=== PATIENT | female | born 1975 | race Caucasian/White ===

== ENCOUNTER 2023-11-16 07:57 | Day surgery (SDC) | payer BC, SELFPAY ==
[2023-11-15 18:14] VITALS: BP 173/120
[2023-11-15] MEDS: DILAUDID 0.5 MG IV (18:26)
[2023-11-15] MEDS: ZOFRAN 4 MG IV ×2 (18:26→19:14)
[2023-11-15] MEDS: NSS 1000 IV (18:29)
--- NOTE | 2023-11-15 18:32 | ED.GENMED ---
History of Present Illness
General
Chief Complaint: Abdominal Symptoms
Source: patient and spouse
Exam Limitations: none
Time Seen by Provider: 11/15/23 18:22
Travel History
Have you had any contact with someone who has COVID-19?: No
Do you have any symptoms of coronavirus? Fever > 100 degrees, chills, cough, shortness of breath, sore throat, loss of taste or smell, muscle aches, or headache?: No
History of Present Illness
History of Present Illness:
Severe left lower quadrant pain. Became severe early this morning. Patient is an ER nurse. Upon leaving work this morning pain was becoming severe. Had some slight reprieve for a few hours and then became severe again. Mild pain in the last 2
days. No history of same. Some nausea. No fever.
Past History
Past History
ED Past Medical History: Cancer (BREAST)
ED Past Surgical History: Appendectomy, and Gynecological (Tubal ligation. Lumpectomy.)
Social History
Tobacco: Non-smoker
Alcohol: None
Drug: None
Personal:
Living: with family
Employment: Employed
Review of Systems
Review of Systems
All Other Systems: Not applicable
Constitutional: Denies fever
ABD/GI: Denies diarrhea
: Reports no symptoms
Phy Exam
Physical Exam
Physical Exam:
GENERAL: Alert. Screaming and writhing in pain
EYE: Orbits normal.
NECK: Supple
CARDIAC: Regular rate and rhythm without any obvious murmurs.
LUNGS: Clear breath sounds,normal
ABDOMEN: Soft, mild tenderness left lower quadrant. No rebound or guarding no mass or hernia
NEUROLOGICAL: Alert and oriented , grossly non-focal
SKIN: Warm and dry, no rash or lesion, no discoloration, skin intact.
MUSCULOSKELETAL: No edema,no deformity.Good color
PSYCH: Very nice and cooperative but agitated secondary to pain
Course
Orders/Labs/Results
Orders:
Orders
11/15/23 18:24
HYDROmorphone [Dilaudid] 0.5 mg .ROUTE .STK-MED ONE
Ondansetron Injectable [Zofran] 4 mg .ROUTE .STK-MED ONE
11/15/23 18:25
Ondansetron Injectable [Zofran] 4 mg IV NOW STA
Test Result ONCE
11/15/23 18:26
HYDROmorphone [Dilaudid] 0.5 mg IV NOW STA
11/15/23 18:27
Type+Screen Urgent
IV Insert/Care/Rem.- Treatment PRN
CA 125 Urgent
Comment: ADDON
CEA Urgent
Comment: ADDON
Complete Blood Count/With Diff Urgent
Comprehensive Metabolic Panel Urgent
HCG, Serum Qualitative Screen Urgent
Lipase Urgent
Urinalysis Reflex To Culture Urgent
Date Specimen was Collected: 11/15/23
Time Specimen was Collected: 18:38
0.9% Sodium Chloride 1000 ml [Nss] 1,000 ml IV BOLUS
11/15/23 18:28
CT Abd/pel Without Iv Or Oral Urgent
Comment:
Reason For Exam: llq pain
11/15/23 18:30
HYDROmorphone [Dilaudid] 0.5 mg .ROUTE .STK-MED ONE
11/15/23 18:41
HYDROmorphone [Dilaudid] 1 mg IV NOW STA
Ketorolac [Toradol] 15 mg IV NOW STA
11/15/23 18:48
US Pelvis Transvaginal Only Stat
Comment:
Reason For Exam: severe llq pain. evaluate for torsion
11/15/23 19:05
Ondansetron Injectable [Zofran] 4 mg IV NOW STA
11/15/23 20:10
Electrocardiogram (*1) Urgent
Reason for Study: Abdominal Pain
EKG- Treatment ONCE
11/15/23 20:35
Diphenhydramine [Benadryl] 25 mg IV NOW STA
Prochlorperazine [Compazine] 5 mg IV NOW STA
11/15/23 21:07
Add On- LAB Urgent
Tests Added?: cea,ca125
11/15/23 21:17
Lidocaine 2% Mpf [Xylocaine Mpf 2%] 100 mg .ROUTE .STK-MED ONE
Propofol [Diprivan] 20 ml .ROUTE .STK-MED
Rocuronium [place] [Rocuronium] 50 mg .ROUTE .STK-MED ONE
11/15/23 21:18
Dexamethasone Sod Phosphate [Decadron] 20 mg .ROUTE .STK-MED ONE
Fentanyl Citrate/Pf [Sublimaze] 100 mcg .ROUTE .STK-MED ONE
Midazolam HCl [Versed] 2 mg .ROUTE .STK-MED ONE
Ondansetron Injectable [Zofran] 4 mg .ROUTE .STK-MED ONE
Abnormal Lab Results
11/15/23
18:27
Glucose 110 H mg/dl
(70-99)
11/15/23 18:27
11/15/23 18:27
Vital Signs
Initial and Last Documented VS:
Initial Vital Signs
Temp Pulse Resp BP Pulse Ox
98.2 F 75 16 173/120 98
11/15/23 18:14 11/15/23 18:14 11/15/23 18:14 11/15/23 18:14 11/15/23 18:14
Last Documented Vital Signs
Temp Pulse Resp BP Pulse Ox
98.2 F 88 21 173/90 99
11/15/23 18:14 11/15/23 19:15 11/15/23 18:30 11/15/23 19:00 11/15/23 18:30
*Radiology
Radiology exam reviewed: radiology read reviewed (Large cystic mass left ovary.) and other (Complex left solid and cystic mass suspicious for neoplasm. Flow to the left ovary. Probable hemorrhagic cyst of the right ovary. No definitive flow to
the right ovary however symptoms are left-sided)
*Pulse Oximetry
Patient hypoxic: no
*Critical Care Note
Total Time (30-74mins, 75-104mins- exclusive of procedures): 40
Update Note
Update Note:
1845... 8 cm left ovarian cystic lesion. By CT. Patient still in significant pain. Clinically highly suspect torsion. [facility] contacted.
1900.... Patient appears mildly more comfortable although more nauseous. Discussed with [facility]. They still would like the ultrasound. They are coming in.
ED Attending Note
-
Portions of this chart may have been created with voice recognition software.� Occasional wrong word or��sound alike� substitutions may have occurred due to the inherent limitations of voice recognition software.
Discharge Plan
Departure
Patient Disposition: Admit
Date of Disposition: 11/15/23
Time of Disposition: 21:10
Presentation/result/management discussed w/ accepting MD/DO: Gynecology
Discharge Problem:
Severe left pelvic pain, Left pelvic cystic mass, Possible ovarian torsion
Prescriptions:
No Action
amoxicillin-pot clavulanate 875-125 mg tablet
1 tab PO BID Qty: 14 0RF
Referrals:
NONE,* [Family Provider] -
Interventions
Interventions:
*Risk Screen - Suicide Last Done: 11/15/23 18:40
*General Assessment Last Done: 11/15/23 21:55
*Neglect/Abuse Screening Last Done: 11/15/23 18:40
ED- Fall Risk Assessment Last Done: 11/15/23 21:55
*ED COVID-19 Vaccine History Last Done: 11/15/23 18:14
*Nursing Disposition Last Done: 11/15/23 21:57
QE-Xatgns-Jzlriwhmft Assessment Last Done: 11/15/23 18:55
Discharge Date and Time
Discharge Date/Time: 11/15/23 21:58
[2023-11-15 18:38] LABS: % Basophils 0.6 % (0-2); % Eosinophils 3.7 % (0-6); % Immature Granulocytes 0.4 % (0-0.5); % Lymphocytes 24.3 % (20.5-51.1); % Monocytes 6.2 % (1.7-9.3); % Neutrophils 64.8 % (42.2-75.2); Absolute Eosinophils 0.2 10^3/uL (0-0.7); Absolute Lymphocytes 1.3 10^3/uL (1.2-3.4); Absolute Monocytes 0.3 10^3/uL (0.1-0.6); Absolute Neutrophils 3.5 10^3/uL (1.4-6.5); Hematocrit 38.5 % (37.0-47.0); Hemoglobin 13.4 g/dL (12.0-16.0); Mean Corp Hgb Conc. 34.8 g/dL (33.0-37.0); Mean Corpuscular Hgb 28.3 pg (27.0-31.0); Mean Corpuscular Volume 81.2 fL (81.0-99.0); Mean Platelet Volume 9.6 fL (7.4-10.4); Nucleated Red Blood Cells % 0 %; Platelet Count 221 10^3/uL (130-400); Red Blood Cell Count 4.74 10^6/uL (4.20-5.40); Red Cell Dist. Width 12.2 % (11.5-14.5); White Blood Cell Count 5.4 10^3/uL (4.8-10.8)
[2023-11-15] MEDS: DILAUDID 1 MG IV (18:44)
[2023-11-15] MEDS: TORADOL 15 MG IV (18:44)
[2023-11-15 18:52] VITALS: BP 177/97
[2023-11-15 19:00] VITALS: BP 173/90
[2023-11-15 19:05] LABS: HCG, Serum Qualitative Screen Negative
[2023-11-15 19:23] LABS: ALT (SGPT) 28 U/L (0-35); AST (SGOT) 28 U/L (14-36); Albumin 4.5 g/dl (3.5-5.0); Alkaline Phosphatase 86 U/L (38-126); Blood Urea Nitrogen 10 mg/dl (7-17); Calcium 9.1 mg/dl (8.4-10.2); Carbon Dioxide 24 mmol/L (22-30); Chloride 104 mmol/L (98-107); Glucose 110 mg/dl (70-99); Lipase 133 U/L (23-300); Potassium 3.9 mmol/L (3.5-5.1); Sodium 135 mmol/L (135-145); Total Bilirubin 0.6 mg/dl (0.2-1.3); Total Protein 7.4 g/dl (6.3-8.2); eGFR > 60.00
[2023-11-15] MEDS: COMPAZINE 5 MG IV (20:39)
[2023-11-15] MEDS: BENADRYL 25 MG IV (20:40)
[2023-11-16] VITALS (10 sets, daily range): BP systolic 125–173; BP diastolic 65–90; BMI 29.0
[2023-11-16] MEDS: NORMOSOL-R 1000 IV (01:44)
[2023-11-16] MEDS: TORADOL 15 MG IV ×2 (01:51→08:26)
[2023-11-16] MEDS: ANCEF 10 IV (05:57)
[2023-11-16] MEDS: DILAUDID 0.5 MG IV (06:12)
[2023-11-16 06:28] LABS: Hematocrit 33.8 % (37.0-47.0); Hemoglobin 11.6 g/dL (12.0-16.0); Mean Corp Hgb Conc. 34.3 g/dL (33.0-37.0); Mean Corpuscular Hgb 28.4 pg (27.0-31.0); Mean Corpuscular Volume 82.8 fL (81.0-99.0); Mean Platelet Volume 9.6 fL (7.4-10.4); Platelet Count 214 10^3/uL (130-400); Red Blood Cell Count 4.08 10^6/uL (4.20-5.40); Red Cell Dist. Width 12.2 % (11.5-14.5); White Blood Cell Count 12.5 10^3/uL (4.8-10.8)
--- NOTE | 2023-11-16 10:15 | W.PN.GYN.DG ---
Today's Communication / Plan
-
D/c to home
F/u in office in 2 weeks
Infection precautions
Will send percocet rx via [facility] office note
Assessment / Plan
-
Assessment: Dos - LPS LSO - torsed ovary
Plan:
D/c to home
F/u in office in 2 weeks
Infection precautions
Will send percocet rx via [facility] office note
Subjective / Objective Data
Subjective Data
Pt feeling much better - no n/v - pain under good control
Objective Data
Vital Signs
Temp Pulse Resp BP Pulse Ox
98.1 F 96 18 148/86 98
11/16/23 08:09 11/16/23 08:09 11/16/23 08:09 11/16/23 08:09 11/16/23 08:09
Intake & Output
11/15/23 11/16/23 11/17/23
06:59 06:59 06:59
Intake Total 275 / 275
Balance 275 / 275
Intake:
IV fluids (Total) 275 / 275
Normosol 275 / 275
Other:
Number of approximated LARGE 1
amounts of urine
Physical Exam
-
Cardiac: Regular rate & rhythm
Lungs: Clear: Bilateral
Abdomen: Soft and Nontender
Bowel Sounds: Normal
Extremities: No Calf Tenderness and No Edema
Incision: No Erythema
Other Findings:
Slight blood at umbilicus - steri strips and bandaids in place
Data Reviewed
-
Lab Data
11/16/23 06:12
11/15/23 18:27
Urine Color Cancelled 11/15/23 18:27
Urine Clarity Cancelled 11/15/23 18:27
Urine pH Cancelled 11/15/23 18:27
Ur Specific [place] Cancelled 11/15/23 18:27
Urine Ketones Cancelled 11/15/23 18:27
Urine Bilirubin Cancelled 11/15/23 18:27
Urine Urobilinogen Cancelled 11/15/23 18:27
--- NOTE | 2023-11-16 10:22 | W.DS.TRANS ---
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
-
Discharge Instructions:
Discharge Diagnosis/Procedures s/P LPS - LSO for ovarian torsion
Diet No restrictions
Activity No strenuous activity
Driving Restrictions No driving for 24 hours
Bathing Restrictions OK to Shower
Instructions:
Stand-Alone Forms:
Changes to Home Medications: No
Discharge Medications:
Home Medication Changes
Pending Results: No
[2023-11-16] MEDS: NORMOSOL-R IV (10:32)
--- NOTE | 2023-11-16 10:47 | CM ---
Patient seen at bedside. Patient states that she is for discharge home with her . Patient states that they live in a 2 story home and that she has no needs anticipated. Patient PCP Dr. Lafleur, and she uses [facility] in [place]. Patient awaiting
IV to be removed. CM will continue to follow for discharge planning needs.
Plan; home no needs.
--- NOTE | 2023-11-16 11:50 | PTCARENOTE ---
Patient with minimal c/o abdominal pain, scheduled dose of Toradol given. Patient OOB to bathroom without difficulty. Patient tolerated regular diet,
+flatus.
[2023-11-16] MEDS: ROXICODONE 5 MG PO (11:56)
[2023-11-17 19:15] LABS: CA 125 24.6 U/mL (0-35)
[2023-11-17 20:40] LABS: CEA 0.81 ng/ml
== END 2023-11-16 10:20 | disposition home or self-care (01) ==
LOC: PACU 07:57
PROVIDERS: Obstetrics & Gynecology Gynecology; ATTENDING PHYSICIAN Obstetrics & Gynecology Gynecology; EMERGENCY PHYSICIAN Emergency Medicine
DX: N83.512 Torsion of left ovary and ovarian pedicle (principal); N83.202 Unspecified ovarian cyst, left side; K66.1 Hemoperitoneum; K66.0 Peritoneal adhesions (postprocedural) (postinfection); Z98.51 Tubal ligation status; Z98.890 Other specified postprocedural states; N83.8 Other noninflammatory disorders of ovary, fallopian tube and broad ligament
CPT/HCPCS: 58661; 88305; 74176; 76830; 80053; 82378; 83690; 84703; 85025; 85027; 86304; 86850; 86900; 86901; 93005; 96361; 96374; 96375; 96376; 99291

== ENCOUNTER → 2024-01-05 08:40 | Outpatient (REF) | payer BC, SELFPAY | LOC: MRI 3T 08:40 | PROVIDERS: ATTENDING PHYSICIAN Surgery Surgical Critical Care; FAMILY PHYSICIAN Physician Assistant Medical | DX: D05.12 Intraductal carcinoma in situ of left breast (principal) | CPT/HCPCS: 77049; A9585 ==

== ENCOUNTER → 2025-01-05 15:17 | Outpatient (REF) | payer BC, SELFPAY | LOC: MRI 3T 15:17 | PROVIDERS: ATTENDING PHYSICIAN Surgery Surgical Critical Care; FAMILY PHYSICIAN Physician Assistant Medical | DX: D05.12 Intraductal carcinoma in situ of left breast (principal) | CPT/HCPCS: 77049; A9585 ==